=== PATIENT | female | born 1950 | race Caucasian/White ===

== ENCOUNTER 2019-11-19 21:30 | Inpatient (IN) | payer OTHER ==
--- NOTE | 2019-11-19 22:48 | EDPHYS ---
Physician Documentation [facility] Name: Kennedi Garcia Age: 69 yrs Sex: Female : 1950 Arrival Date: 11/19/2019 Time: 21:33 Bed 15 Private MD: ED Physician Juan Blanc HPI: 11/18 22:43 This 69 yrs old Female presents to ER via Ambulatory with complaints of sheela covid-19, Cough, Breathing Difficulty. 22:43 The patient or guardian reports cough, difficulty breathing, flu symptoms, arthralgias, sheela low-grade fever, myalgias. Onset: The symptoms/episode began/occurred 3 week(s) ago. Severity of symptoms: At their worst the symptoms were moderate, in the emergency department the symptoms are unchanged. Modifying factors: The symptoms are alleviated by nothing, the symptoms are aggravated by exertion. Associated signs and symptoms: Pertinent positives: chest pain, earache, nausea, rhinorrhea, sore throat, weak and sob increasing. The patient has experienced similar episodes in the past, several times. Historical: - Allergies: 23:24 No Known Allergies; mg2 - Home Meds: 11/19 05:29 Lipitor Oral [Active]; propanolol [Active]; xanax [Active]; Norvasc Oral [Active]; HCTZ mg2 [Active]; Lexapro Oral [Active]; - PMHx: 11/18 23:24 Hypertension; mg2 11/19 05:29 tremors; mg2 - PSHx: 11/18 23:24 sinus surgery; mg2 - Immunization history:: Flu vaccine is up to date. - Social history:: Smoking status: Patient denies any tobacco usage or history of. Patient/guardian denies using alcohol, street drugs, IV drugs. ROS: 22:44 Constitutional: Negative for fever, chills, and weight loss, Eyes: Negative for injury, sheela pain, redness, and discharge, ENT: Negative for injury, pain, and discharge, Neck: Negative for injury, pain, and swelling, Cardiovascular: Negative for chest pain, palpitations, and edema, Abdomen/GI: Negative for abdominal pain, nausea, vomiting, diarrhea, and constipation, Back: Negative for injury and pain, : Negative for injury, bleeding, discharge, and swelling, MS/Extremity: Negative for injury and deformity, Skin: Negative for injury, rash, and discoloration, Neuro: Negative for headache, weakness, numbness, tingling, and seizure, Psych: Negative for depression, anxiety, suicide ideation, homicidal ideation, and hallucinations, Allergy/Immunology: Negative for hives, rash, and allergies, Endocrine: Negative for neck swelling, polydipsia, polyuria, polyphagia, and marked weight changes, Hematologic/Lymphatic: Negative for swollen nodes, abnormal bleeding, and unusual bruising. 22:44 Respiratory: Positive for cough, shortness of breath, at rest. Exam: 22:44 Constitutional: This is a well developed, well nourished patient who is awake, alert, sheela and in no acute distress. Head/Face: Normocephalic, atraumatic. Eyes: Pupils equal round and reactive to light, extra-ocular motions intact. Lids and lashes normal. Conjunctiva and sclera are non-icteric and not injected. Cornea within normal limits. Periorbital areas with no swelling, redness, or edema. ENT: Nares patent. No nasal discharge, no septal abnormalities noted. Tympanic membranes are normal and external auditory canals are clear. Oropharynx with no redness, swelling, or masses, exudates, or evidence of obstruction, uvula midline. Mucous membranes moist. Neck: Trachea midline, no thyromegaly or masses palpated, and no cervical lymphadenopathy. Supple, full range of motion without nuchal rigidity, or vertebral point tenderness. No Meningismus. Chest/axilla: Normal chest wall appearance and motion. Nontender with no deformity. No lesions are appreciated. Cardiovascular: Regular rate and rhythm with a normal S1 and S2. No gallops, murmurs, or rubs. Normal PMI, no JVD. No pulse deficits. Abdomen/GI: Soft, non-tender, with normal bowel sounds. No distension or tympany. No guarding or rebound. No evidence of tenderness throughout. Back: No spinal tenderness. No costovertebral tenderness. Full range of motion. Female : Normal external genitalia. Skin: Warm, dry with normal turgor. Normal color with no rashes, no lesions, and no evidence of cellulitis. MS/ Extremity: Pulses equal, no cyanosis. Neurovascular intact. Full, normal range of motion. Neuro: Awake and alert, GCS 15, oriented to person, place, time, and situation. Cranial nerves II-XII grossly intact. Motor strength 5/5 in all extremities. Sensory grossly intact. Cerebellar exam normal. Normal gait. Psych: Awake, alert, with orientation to person, place and time. Behavior, mood, and affect are within normal limits. 22:44 Respiratory: the patient does not display signs of respiratory distress, Respirations: no acute changes, is not noted, labored breathing, is not present, asymmetrical chest movement, is not seen, Breath sounds: decreased breath sounds, that are mild, Respiratory rate: 20 22:44 Musculoskeletal/extremity: DVT Exam: No signs of deep vein thrombosis. no pain, no swelling, no tenderness, negative Homans' sign noted on exam, no appreciated bluish discoloration, no erythema, no increased warmth. Vital Signs: 22:15 BP 157 / 76; Pulse 69; Resp 20; Temp 98.6; Pulse Ox 85% on R/A; mg2 22:27 Pulse Ox 97% on 3 lpm NC; mg2 23:23 BP 141 / 63; Pulse 72; Resp 18; Temp 98.3; Pulse Ox 99% on 3 lpm NC; mg2 23:30 Weight 77.11 kg; mg2 07/02 01:21 BP 160 / 82; Pulse 67; Resp 18; Temp 98.3; Pulse Ox 100% on 4 lpm NC; mg2 02:10 BP 153 / 75; Pulse 67; Resp 20 S; Pulse Ox 95% on 4 lpm NC; jd3 MDM: 11/18 21:[address] [facility] 22:49 Differential Diagnosis: sepsis, Obstructed Airway Bronchitis Influenza Upper sheela Respiratory Infection Sinusitis Asthma Exacerbation Pneumonia Tracheal Injury. Data reviewed: vital signs, nurses notes, lab test result(s), EKG, radiologic studies, plain films. Data interpreted: surveillance system monitor: rate is 69 beats/min, rhythm is regular, Pulse oximetry: on 2L(s) per nasal canula, is 97 %. Test interpretation: by ED physician or midlevel provider: ECG, plain radiologic studies. Counseling: I had a detailed discussion with the patient and/or guardian regarding: the historical points, exam findings, and any diagnostic results supporting the discharge/admit diagnosis, lab results, radiology results, the need for further work-up and treatment in the hospital. ED course: plan discussed with patient , and dr shelby, admitting . 11/19 02:09 Physician consultation: Bob Jones MD was called at 08:00, was contacted at 08:00, [facility] regarding admission, to the telemetry unit. patient's condition, and will see patient in inpatient room, would like medications started, Lovenox, nothing else at this time. 11/18 22:26 Order name: Blood Culture [facility] ([facility] [place] 11/18 22:26 Order name: BMP; Complete Time: 23:24 mg2 11/18 22:26 Order name: CBC with Diff; Complete Time: 23:24 mg2 11/18 22:26 Order name: Ckmb; Complete Time: 23:24 mg2 11/18 22:26 Order name: CPK; Complete Time: 23:24 mg2 11/18 22:26 Order name: D-Dimer; Complete Time: 23:24 mg2 11/18 22:26 Order name: Hepatic Function; Complete Time: 23:24 mg2 11/18 22:26 Order name: Lipase; Complete Time: 23:24 mg2 11/18 22:26 Order name: Magnesium; Complete Time: 23:24 mg2 11/18 22:26 Order name: NT PRO-BNP; Complete Time: 23:24 mg2 11/18 22:26 Order name: PT-INR; Complete Time: 23:24 mg2 11/18 22:26 Order name: Ptt, Activated; Complete Time: 23:24 mg2 11/18 22:26 Order name: Troponin (emerg Dept Use Only); Complete Time: 23:24 mg2 11/19 00:37 Order name: C-Reactive Protein; Complete Time: 01:51 EDMS 11/18 22:42 Order name: Chest Single View XRAY [facility] 11/18 23:25 Order name: CT Chest For PE Angio [facility] 11/19 00:37 Order name: Ferritin; Complete Time: 01:51 EDMS 11/19 00:37 Order name: Comprehensive Metabolic Panel EDMS 11/19 00:37 Order name: Lactate EDMS 11/19 00:37 Order name: Lactic Dehydrogenase; Complete Time: 01:51 EDMS 11/19 00:37 Order name: Procalcitonin EDMS 11/19 00:37 Order name: CBC with Automated Diff EDMS 11/19 00:37 Order name: D-Dimer EDMS 11/19 00:37 Order name: Magnesium EDMS 11/19 00:37 Order name: NT PRO-BNP EDTX 11/19 00:37 Order name: Phosphorus EDTX 11/19 00:37 Order name: Troponin I EDTX 11/19 02:02 Order name: Urine Culture [facility] 11/19 12:37 Order name: Manual Differential EDTX 11/19 14:02 Order name: CT EDTX 11/18 22:26 Order name: EKG; Complete Time: 22:27 mg2 11/18 22:26 Order name: Cardiac monitoring; Complete Time: 22:26 mg2 11/18 22:26 Order name: EKG - Nurse/Tech; Complete Time: 22:26 mg2 11/18 22:26 Order name: IV Saline Lock; Complete Time: 22:26 mg2 11/18 22:26 Order name: Labs collected and sent; Complete Time: : mg2 11/18 22:26 Order name: O2 Per Protocol; Complete Time: 22:27 mg2 11/18 22:26 Order name: O2 Sat Monitoring; Complete Time: 22:27 mg2 11/19 00:35 Order name: Heart Healthy EDTX 11/19 01:42 Order name: Misc. Order: strict bedrest; Complete Time: 01:46 [facility] Administered Medications: 11/18 23:10 Drug: Zithromax 500 mg Route: IVPB; Infused Over: 1 hrs; Site: right antecubital; mg2 11/19 00:23 Follow up: Response: No adverse reaction; IV Status: Completed infusion; IV Intake: mg2 500ml 11/18 23:10 Drug: SOLU-Medrol 125 mg Route: IVP; Site: right antecubital; mg2 11/19 00:23 Follow up: Response: No adverse reaction mg2 11/18 23:11 Drug: Rocephin 1 grams Route: IV; Rate: per protocol; Site: right antecubital; mg2 11/19 00:23 Follow up: Response: No adverse reaction; IV Status: Completed infusion mg2 11/18 23:13 Drug: Albuterol HFA Inhaler 2 puffs Route: Inhalation; mg2 11/19 00:23 Follow up: Response: No adverse reaction mg2 11/18 23:59 Drug: NS 0.9% with KCl 20 mEq/L 1000 ml Route: IV; Rate: 125 ml/hr; Site: right mg2 antecubital; 11/19 01:46 Follow up: Response: No adverse reaction; IV Status: Infusion continued upon admission mg2 00:00 Drug: Lovenox 1 mg/kg Route: Sub-Q; Site: right lower abdomen; mg2 00:23 Follow up: Response: No adverse reaction mg2 00:00 Drug: Potassium Effervescent Tablet 50 mEq Route: PO; mg2 00:23 Follow up: Response: No adverse reaction mg2 00:00 Drug: NS 0.9% 500 ml Route: IV; Rate: bolus; Site: right antecubital; mg2 :46 Follow up: Response: No adverse reaction; IV Status: Completed infusion; IV Intake: mg2 500ml 01:50 Drug: Aspirin Chewable Tablet 324 mg Route: PO; mg2 02:11 Follow up: Response: No adverse reaction jd3 01:50 Drug: Pepcid 20 mg Route: IVP; Site: right antecubital; mg2 02:11 Follow up: Response: No adverse reaction jd3 Disposition: 11/19/19 22:48 Hospitalization ordered by Renata Shelby for Inpatient Admission. Preliminary diagnosis are Hypoxemia, Acute upper respiratory infection, unspecified, SARS-associated coronavirus as the cause of diseases classified elsewhere, Dyspnea, Pneumonia due to other specified bacteria - bilateral, Hypokalemia, Pulmonary edema - saddle, bilateral, Urinary tract infection, site not specified. - Bed requested for Intensive Care Unit. - Status is Inpatient Admission. sv - Condition is Fair. - Problem is new. - Symptoms have improved. Signatures: Dispatcher [employer] EDMS Teresa Herrera RN RN sv Anderson, Corey, MD MD cha Lasagna, Tonya RN RN tl1 Praful Covarrubias RN RN ja1 Jose Angel Suggs RN RN mg2 Yousif Mercado RN jd3 Corrections: (The following items were deleted from the chart) 11/18 22:48 22:48 Hospitalization Ordered by Renata Shelby MD for Inpatient Admission. Preliminary sheela diagnosis is Hypoxemia; Acute upper respiratory infection, unspecified; SARS-associated coronavirus as the cause of diseases classified elsewhere. Bed requested for Telemetry/MedSurg (Inpatient). Status is Inpatient Admission. Condition is Fair. Problem is new. Symptoms have improved. sheela 23:26 22:48 11/19/2019 22:48 Hospitalization Ordered by Renata Shelby MD for Inpatient sheela Admission. Preliminary diagnosis is Hypoxemia; Acute upper respiratory infection, unspecified; SARS-associated coronavirus as the cause of diseases classified elsewhere; Dyspnea. Bed requested for Telemetry/MedSurg (Inpatient). Status is Inpatient Admission. Condition is Fair. Problem is new. Symptoms have improved. [facility] 11/19 00:45 07 23:26 11/19/2019 22:48 Hospitalization Ordered by Renata Shelby MD for Inpatient tl1 Admission. Preliminary diagnosis is Hypoxemia; Acute upper respiratory infection, unspecified; SARS-associated coronavirus as the cause of diseases classified elsewhere; Dyspnea; Pneumonia due to other specified bacteria - bilateral; Hypokalemia. Bed requested for Telemetry/MedSurg (Inpatient). Status is Inpatient Admission. Condition is Fair. Problem is new. Symptoms have improved. [facility] 11/19 01:43 00:45 11/19/2019 22:48 Hospitalization Ordered by Renata Shelby MD for Inpatient sheela Admission. Preliminary diagnosis is Hypoxemia; Acute upper respiratory infection, unspecified; SARS-associated coronavirus as the cause of diseases classified elsewhere; Dyspnea; Pneumonia due to other specified bacteria - bilateral; Hypokalemia. Bed requested for [facility] ER HOLD. Status is Inpatient Admission. Condition is Fair. Problem is new. Symptoms have improved. tl1 01:51 01:43 11/19/2019 22:48 Hospitalization Ordered by Renata Shelby MD for Inpatient sheela Admission. Preliminary diagnosis is Hypoxemia; Acute upper respiratory infection, unspecified; SARS-associated coronavirus as the cause of diseases classified elsewhere; Dyspnea; Pneumonia due to other specified bacteria - bilateral; Hypokalemia; Pulmonary edema - saddle, bilateral. Bed requested for Intensive Care Unit. Status is Inpatient Admission. Condition is Fair. Problem is new. Symptoms have improved. [facility] 02:02 01:51 11/19/2019 22:48 Hospitalization Ordered by Renata Shelby MD for Inpatient sheela Admission. Preliminary diagnosis is Hypoxemia; Acute upper respiratory infection, unspecified; SARS-associated coronavirus as the cause of diseases classified elsewhere; Dyspnea; Pneumonia due to other specified bacteria - bilateral; Hypokalemia; Pulmonary edema - saddle, bilateral. Bed requested for Telemetry/MedSurg (Inpatient). Status is Inpatient Admission. Condition is Fair. Problem is new. Symptoms have improved. [facility] 02:31 02:02 11/19/2019 22:48 Hospitalization Ordered by Renata Shelby MD for Inpatient tl1 Admission. Preliminary diagnosis is Hypoxemia; Acute upper respiratory infection, unspecified; SARS-associated coronavirus as the cause of diseases classified elsewhere; Dyspnea; Pneumonia due to other specified bacteria - bilateral; Hypokalemia; Pulmonary edema - saddle, bilateral; Urinary tract infection, site not specified. Bed requested for Telemetry/MedSurg (Inpatient). Status is Inpatient Admission. Condition is Fair. Problem is new. Symptoms have improved. [facility] 13:36 02:31 11/19/2019 22:48 Hospitalization Ordered by Renata Shelby MD for Inpatient ja1 Admission. Preliminary diagnosis is Hypoxemia; Acute upper respiratory infection, unspecified; SARS-associated coronavirus as the cause of diseases classified elsewhere; Dyspnea; Pneumonia due to other specified bacteria - bilateral; Hypokalemia; Pulmonary edema - saddle, bilateral; Urinary tract infection, site not specified. Bed requested for [facility] ER HOLD. Status is Inpatient Admission. Condition is Fair. Problem is new. Symptoms have improved. tl1 14:37 13:36 11/19/2019 22:48 Hospitalization Ordered by Renata Shelby MD for Inpatient sv Admission. Preliminary diagnosis is Hypoxemia; Acute upper respiratory infection, unspecified; SARS-associated coronavirus as the cause of diseases classified elsewhere; Dyspnea; Pneumonia due to other specified bacteria - bilateral; Hypokalemia; Pulmonary edema - saddle, bilateral; Urinary tract infection, site not specified. Bed requested for Intensive Care Unit. Status is Inpatient Admission. Condition is Fair. Problem is new. Symptoms have improved. 1
--- NOTE | 2019-11-19 22:48 | ER ---
Nurse's Notes [facility] Name: Kennedi Garcia Age: 69 yrs Sex: Female : 1950 Arrival Date: 11/19/2019 Time: 21:33 Bed 15 Private MD: Diagnosis: Hypoxemia;Acute upper respiratory infection, unspecified;SARS-associated coronavirus as the cause of diseases classified elsewhere;Dyspnea;Pneumonia due to other specified bacteria-bilateral;Hypokalemia;Pulmonary edema-saddle, bilateral;Urinary tract infection, site not specified Presentation: 11/18 21:49 Chief complaint: Patient states: Cough, Shortness of breath for several days, reports sg having had been tested for COVID-19 at this time, pt states feels chills but unsure of how high fever has gotten. Coronavirus screen: Surgical mask placed on patient. Patient moved to private room, placed in contact and droplet isolation with eye protection until further assessment. Patient reports a cough. Patient reports shortness of breath or difficulty breathing. Ebola Screen: Patient negative for fever greater than or equal to 101.5 degrees Fahrenheit, and additional compatible Ebola Virus Disease symptoms Patient denies exposure to infectious person. Patient denies travel to an Ebola-affected area in the 21 days before illness onset. No symptoms or risks identified at this time. Initial Sepsis Screen: Does the patient meet any 2 criteria? No. Patient's initial sepsis screen is negative. Does the patient have a suspected source of infection? No. Patient's initial sepsis screen is negative. Risk Assessment: Do you want to hurt yourself or someone else? Patient reports no desire to harm self or others. Onset of symptoms was November 19, 2019. Care prior to arrival: None. 21:49 Method Of Arrival: Ambulatory sg 21:49 Acuity: VIKTORIA 3 sg Triage Assessment: 23:00 Respiratory: the patient has moderate shortness of breath. mg2 23:00 Respiratory: Onset: The symptoms/episode began/occurred yesterday. mg2 Historical: - Allergies: 23:24 No Known Allergies; mg2 - Home Meds: 11/19 05:29 Lipitor Oral [Active]; propanolol [Active]; xanax [Active]; Norvasc Oral [Active]; HCTZ mg2 [Active]; Lexapro Oral [Active]; - PMHx: 11/18 23:24 Hypertension; mg2 11/19 05:29 tremors; mg2 - PSHx: 11/18 23:24 sinus surgery; mg2 - Immunization history:: Flu vaccine is up to date. - Social history:: Smoking status: Patient denies any tobacco usage or history of. Patient/guardian denies using alcohol, street drugs, IV drugs. Screenin:29 Abuse screen: Denies threats or abuse. Denies injuries from another. Nutritional mg2 screening: No deficits noted. Tuberculosis screening: No symptoms or risk factors identified. Fall Risk IV access (20 points). Assessment: 22:27 General: Appears in no apparent distress. comfortable, Behavior is calm, cooperative. mg2 Pain: Denies pain. Neuro: Level of Consciousness is awake, alert, obeys commands, Oriented to person, place, time, situation. Cardiovascular: Capillary refill < 3 seconds Patient's skin is warm and dry. Rhythm is sinus rhythm. Respiratory: Reports shortness of breath at rest cough that is productive, since 2 days ago Airway is patent Respiratory effort is even, unlabored, Respiratory pattern is regular, symmetrical, diminished breath sounds bilateral. GI: No signs and/or symptoms were reported involving the gastrointestinal system. : No signs and/or symptoms were reported regarding the genitourinary system. EENT: No signs and/or symptoms were reported regarding the EENT system. Derm: Skin is intact, is healthy with good turgor, Skin is pink, warm \T\ dry. normal. Musculoskeletal: Circulation, motion, and sensation intact. Capillary refill < 3 seconds. 23:22 Reassessment: Patient appears in no apparent distress at this time. Patient and/or mg2 family updated on plan of care and expected duration. Pain level reassessed. Patient is alert, oriented x 3, equal unlabored respirations, skin warm/dry/pink. 11/19 00:22 Reassessment: patient sent to ct via stretcher. mg2 02:09 General: Appears in no apparent distress. comfortable, Behavior is calm, cooperative, jd3 appropriate for age. Pain: Denies pain. Neuro: Level of Consciousness is awake, alert, obeys commands, Oriented to person, place, time, situation. Cardiovascular: Capillary refill < 3 seconds Patient's skin is warm and dry. Rhythm is regular. Respiratory: Reports shortness of breath at rest cough that is persistent Airway is patent Respiratory effort is even, unlabored, Respiratory pattern is regular, symmetrical, Breath sounds are diminished bilaterally. GI: No signs and/or symptoms were reported involving the gastrointestinal system. : No signs and/or symptoms were reported regarding the genitourinary system. EENT: No signs and/or symptoms were reported regarding the EENT system. Derm: Skin is intact, Skin is dry, Skin is normal, Skin temperature is warm. Musculoskeletal: Circulation, motion, and sensation intact. Range of motion: intact in all extremities. 02:10 Reassessment: charting continued in [facility]. d3 Vital Signs: 11/18 22:15 BP 157 / 76; Pulse 69; Resp 20; Temp 98.6; Pulse Ox 85% on R/A; mg2 22:27 Pulse Ox 97% on 3 lpm NC; mg2 23:23 BP 141 / 63; Pulse 72; Resp 18; Temp 98.3; Pulse Ox 99% on 3 lpm NC; mg2 23:30 Weight 77.11 kg; mg2 11/19 01:21 BP 160 / 82; Pulse 67; Resp 18; Temp 98.3; Pulse Ox 100% on 4 lpm NC; mg2 02:10 BP 153 / 75; Pulse 67; Resp 20 S; Pulse Ox 95% on 4 lpm NC; jd3 ED Course: 11/18 21:33 Patient arrived in ED. es 21:49 Jose Angel Suggs, LUIS FERNANDO is Primary Nurse. mg2 21:49 Juan Blanc MD is Attending Physician. sheela 21:51 Triage completed. sg 21:51 Arm band placed on. EKG completed in triage. Results shown to MD. sg 22:27 No provider procedures requiring assistance completed. Inserted saline lock: 20 gauge mg2 in right antecubital area, using aseptic technique. Blood collected. 22:46 Renata Pritchard MD is Hospitalizing Provider. sheela 23:17 Chest Single View XRAY In Process Unspecified. EDMS 23:23 Patient has correct armband on for positive identification. air sampling and monitoring on. Pulse mg2 ox on. NIBP on. 11/19 02:04 Patient admitted, IV remains in place. mg2 13:40 Echocardiogram with Doppler done by semiconductor technician. tc Administered Medications: 11/18 23:10 Drug: Zithromax 500 mg Route: IVPB; Infused Over: 1 hrs; Site: right antecubital; mg2 11/19 00:23 Follow up: Response: No adverse reaction; IV Status: Completed infusion; IV Intake: mg2 500ml 11/18 23:10 Drug: SOLU-Medrol 125 mg Route: IVP; Site: right antecubital; mg2 11/19 00:23 Follow up: Response: No adverse reaction mg2 11/18 23:11 Drug: Rocephin 1 grams Route: IV; Rate: per protocol; Site: right antecubital; mg2 11/19 00:23 Follow up: Response: No adverse reaction; IV Status: Completed infusion mg2 11/18 23:13 Drug: Albuterol HFA Inhaler 2 puffs Route: Inhalation; mg2 11/19 00:23 Follow up: Response: No adverse reaction mg2 11/18 23:59 Drug: NS 0.9% with KCl 20 mEq/L 1000 ml Route: IV; Rate: 125 ml/hr; Site: right mg2 antecubital; 11/19 01:46 Follow up: Response: No adverse reaction; IV Status: Infusion continued upon admission mg2 00:00 Drug: Lovenox 1 mg/kg Route: Sub-Q; Site: right lower abdomen; mg2 00:23 Follow up: Response: No adverse reaction mg2 00:00 Drug: Potassium Effervescent Tablet 50 mEq Route: PO; mg2 00:23 Follow up: Response: No adverse reaction mg2 00:00 Drug: NS 0.9% 500 ml Route: IV; Rate: bolus; Site: right antecubital; mg2 01:46 Follow up: Response: No adverse reaction; IV Status: Completed infusion; IV Intake: mg2 500ml 01:50 Drug: Aspirin Chewable Tablet 324 mg Route: PO; mg2 02:11 Follow up: Response: No adverse reaction jd3 01:50 Drug: Pepcid 20 mg Route: IVP; Site: right antecubital; mg2 02:11 Follow up: Response: No adverse reaction jd3 Intake: 00:23 IV: 500ml; Total: 500ml. mg2 01:46 IV: 500ml; Total: 1000ml. mg2 Outcome: 11/18 22:48 Decision to Hospitalize by Provider. sheela 11/19 02:48 Admitted to ER Hold. Please see [facility] for further documentation. jd3 Condition: stable Instructed on the need for admit, Demonstrated understanding of instructions. 14:37 Patient left the ED. sv Signatures: Dispatcher [employer] EDTeresa Villa RN RN Alex San RN Juan Sarmiento MD MD cha Salyer, Edna es Callis, Tiffany, night auditor EKG Ttc Yousif Mercado RN RN jd3 Jose Angel Suggs, LUIS FERNANDO RN mg2 Corrections: (The following items were deleted from the chart) 00:26 07/ 22:27 Respiratory: Reports shortness of breath at rest cough that is productive, mg2 since 2 days ago Airway is patent Respiratory effort is even, unlabored, Respiratory pattern is regular, symmetrical, Breath sounds are clear bilaterally. in mediastinum, right upper lobe, left upper lobe, right middle lobe, left lower lobe, right lower lobe, left posterior upper lobe, right posterior upper lobe, left posterior lower lobe, right posterior middle lobe and right posterior lower lobe mg2
[2019-11-19 23:05] LABS: Absolute Lymphocytes (CBC) 1.3 K/uL (0.7-4.9); Basophils % 1.3 % (0-1.3); Hematocrit 31.6 % (36.0-45.0); Lymphocytes % 12.3 % (15.3-44.8); RBC Red Blood Cell Count 3.47 M/uL (3.86-4.86)
[2019-11-19] MEDS ORDERED: NA CHLORIDE 0.9% 250 ML ONE (23:06)
[2019-11-19] MEDS ORDERED: ALBUTEROL INHALER 60 PUFF/8 GM IH ONE (23:06)
[2019-11-19] MEDS ORDERED: CEFTRIAXONE/SWI 1gm 1 GM/10 ML SYR ONE (23:06)
[2019-11-19] MEDS ORDERED: METHYLPREDNISOLONE 125 MG INJ ONE (23:06)
[2019-11-19] MEDS ORDERED: AZITHROMYCIN 500 MG INJ IVPB ONE (23:07)
[2019-11-19 23:19] LABS: Protime INR 1.12
[2019-11-19 23:20] LABS: ALT/SGPT 30 U/L (12-78); AST/SGOT 22 U/L (15-37); Alkaline Phosphatase 48 U/L (45-117); BUN Blood Urea Nitrogen 7 mg/dL (7-18); Bicarbonate 23 mmol/L (21-32); Bilirubin Direct 0.1 mg/dL (0-0.2); Bilirubin Total 0.6 mg/dL (0.2-1.0); CKMB Creatine Kinase MB < 1.0 ng/mL (0.3-3.6); Creatine Phosphokinase 76 U/L (26-192); Glucose Level 110 mg/dL (74-106); Lipase 103 U/L (73-393); Magnesium 1.9 mg/dL (1.8-2.4); NT PRO-BNP 4354 pg/mL (<125); Potassium 3.1 mmol/L (3.5-5.1); Protein, Total 7.8 g/dL (6.4-8.2); Sodium Level 141 mmol/L (136-145); Troponin (Emerg Dept Use Only) 0.03 ng/mL (0.0-0.045)
[2019-11-19] MEDS ORDERED: NA CHLORIDE 0.9% 500 ML ONE (23:54)
[2019-11-19] MEDS ORDERED: NS KCL 20MEQ 1,000 ML IV ONE (23:54)
[2019-11-19] MEDS ORDERED: ENOXAPARIN 80 MG/0.8 ML SQ ONE (23:54)
[2019-11-19] MEDS ORDERED: POTASSIUM 25 MEQ EFFERV TAB ONE (23:54)
[2019-11-20] MEDS ORDERED: ACETAMINOPHEN 500 MG TAB PO PRN (00:19)
[2019-11-20] MEDS ORDERED: ONDANSETRON 4 MG/2 ML VIAL IV PRN (00:26)
[2019-11-20] MEDS ORDERED: ENOXAPARIN 100 MG/ML SYR SQ SCH (00:26)
[2019-11-20 01:50] LABS: C-Reactive Protein 24.5 mg/L (<3.00); Ferritin 241.6 ng/mL (8-388)
[2019-11-20] MEDS ORDERED: FAMOTIDINE 20 MG/2 ML VIAL IV ONE (01:58)
[2019-11-20] MEDS ORDERED: ASPIRIN 81 MG CHEWABLE TABLET ONE (01:58)
[2019-11-20 02:44] VITALS: BMI 31.1
[2019-11-20] MEDS ORDERED: CEFTRIAXONE 1 GM/NS 50 ML 1 GM/50 ML BAG IV SCH (03:00)
[2019-11-20] MEDS ORDERED: AZITHROMYCIN IV 500 MG in NA CHLORIDE 0.9% 250 ML IVPB SCH ×2 (03:30→21:00)
--- NOTE | 2019-11-20 07:54 | P.HP ---
Certification for Inpatient Patient admitted to: Inpatient With expected LOS: >2 Midnights Patient will require the following post-hospital care: None Practitioner: I am a practitioner with admitting privileges, knowledge of patient current condition, hospital course, and medical plan of care. Services: Services provided to patient in accordance with Admission requirements found in Title 42 Section 412.3 of the Code of Federal Regulations Patient History Date of Service: 11/20/19 Reason for admission: Dyspnea; saddle emboli; rule out cor pulmonale History of Present Illness: Patient is a 69-year-old female came to the hospital with shortness of breath. 2 weeks ago patient was found have COVID-19 pneumonia. Patient recovered and was doing better over the last couple weeks. However, yesterday her shortness of breath returned. She came into the emergency room for further evaluation. In the ER she had labs which revealed a significantly elevated D-dimer level. CT PE protocol was performed. Patient was diagnosed with a saddle emboli. Patient becomes short of breath just from moving in her bed. Patient becomes hypoxic on moving from her bed. I spoke to the radiologist and he did not see any right ventricular strain on the CT scan. Will monitor patient also get an echo in the morning to re-evaluate for RV strain. Emergency room spoke with Pulmonary and patient was given Lovenox. If patient becomes hemodynamically unstable then may benefit from tPA. Will admit patient to ICU for closer monitoring. Allergies No Known Allergies Allergy (Unverified 11/20/19 01:04) - Past Medical/Surgical History Has patient received pneumonia vaccine in the past: Yes Diabetic: No -: COVID-19 Past Surgical History: Patient denies surgical history - Family History Father Family History: Reviewed- Non-Contributory - Social History Smoking Status: Never smoker Alcohol use: Yes CD- Drugs: No Caffeine use: Yes Place of Residence: Home Review of Systems 10-point ROS is otherwise unremarkable Physical Examination - Vital Signs Temperature: 99 F Blood Pressure: 143/66 Pulse: 65 Respirations: 20 Pulse Ox (%): 97 - Physical Exam General: Alert, In no apparent distress, Oriented x3 HEENT: Atraumatic, PERRLA, Mucous membr. moist/pink, EOMI, Sclerae nonicteric Neck: Supple, 2+ carotid pulse no bruit, No LAD, Without JVD or thyroid abnormality Respiratory: Diminished, Expiratory wheezes Cardiovascular: Regular rate/rhythm, Normal S1 S2, No murmurs Gastrointestinal: Normal bowel sounds, Soft and benign, Non-distended, No tenderness Musculoskeletal: No tenderness Integumentary: No rashes Neurological: Normal gait, Normal speech, Normal strength at 5/5 x4 extr, Normal tone, Sensation intact, Cranial nerves 3-12 intact, Normal affect Lymphatics: No axilla or inguinal lymphadenopathy - Studies Laboratory Data (last 24 hrs) 11/19/19 22:15: PT 13.2 H, INR 1.12, APTT 38.9 H 11/19/19 22:15: WBC 10.7, Hgb 10.5 L, Hct 31.6 L, Plt Count 318 11/19/19 22:15: Sodium 141, Potassium 3.1 L, BUN 7, Creatinine 0.95, Glucose 110 H, Magnesium 1.9, Total Bilirubin 0.6, AST 22, ALT 30, Alkaline Phosphatase 48, Lipase 103 Assessment & Plan - Problems (Diagnosis) (1) Saddle embolism of pulmonary artery Current Visit: Yes Status: Acute (2) Pneumonia due to COVID-19 virus Current Visit: Yes Status: Acute - Plan Plan: 1. Continue anti coagulation 2. Pulmonary consultation 3. Echocardiogram 4. Inhaler and antibiotic therapy 5. O2 per protocol 6. GI and DVT prophylaxis Discharge Plan: Home Plan to discharge in: Greater than 2 days - Advance Directives Does patient have a Living Will: No Does patient have a Durable POA for Healthcare: No - Code Status/Comfort Care Code Status Assessed: Yes Code Status: Full Code Critical Care: Yes Time Spent Managing PTS Care (In Minutes): 45
[2019-11-20] MEDS ORDERED: ENOXAPARIN 80 MG/0.8 ML SQ SCH (09:00)
[2019-11-20] MEDS ORDERED: CEFTRIAXONE/SWI 1gm 1 GM/10 ML SYR IV SCH (09:00)
[2019-11-20] MEDS ORDERED: ENOXAPARIN 80 MG/0.8 ML SQ ONE (10:46)
[2019-11-20] MEDS ORDERED: CEFTRIAXONE/SWI 1gm 1 GM/10 ML SYR ONE (10:46)
[2019-11-20 11:15] LABS: Absolute Lymphocytes (CBC) 0.7 K/uL (0.7-4.9); Basophils % 0.4 % (0-1.3); Hematocrit 30.2 % (36.0-45.0); Lymphocytes % 7.6 % (15.3-44.8); MPV 8.5 fL (7.6-11.3); RBC Red Blood Cell Count 3.31 M/uL (3.86-4.86)
[2019-11-20 11:38] LABS: ALT/SGPT 27 U/L (12-78); AST/SGOT 24 U/L (15-37); Albumin 2.8 g/dL (3.4-5.0); Alkaline Phosphatase 46 U/L (45-117); BUN Blood Urea Nitrogen 8 mg/dL (7-18); Bicarbonate 25 mmol/L (21-32); Bilirubin Total 0.4 mg/dL (0.2-1.0); Glucose Level 163 mg/dL (74-106); Magnesium 1.8 mg/dL (1.8-2.4); NT PRO-BNP 4199 pg/mL (<125); Phosphorus 2.5 mg/dL (2.5-4.9); Potassium 4.2 mmol/L (3.5-5.1); Protein, Total 7.2 g/dL (6.4-8.2); Sodium Level 144 mmol/L (136-145); Troponin I < 0.02 ng/mL (0.0-0.045)
--- NOTE | 2019-11-20 12:08 | RAD REPORT ---
EXAM DESCRIPTION: RAD - Chest Single View - 11/19/2019 11:17 pm CLINICAL HISTORY: Fever;Dyspnea COMPARISON: None TECHNIQUE: AP portable chest image was obtained 11/19/2019 11:17 pm . FINDINGS: Lung volumes are relatively low. Scattered ground-glass opacification is present throughou t both lung [place] including interstitial opacification in the lung [place]. Findings are consistent w ith a COVID-19 pneumonia. Heart size accentuated by shallow inspiration. Vasculature within normal limits. No measurable pleur al effusion and no pneumothorax. No acute bony abnormality seen. No acute aortic findings suspected. IMPRESSION: 1. Bilateral ground-glass opacification throughout both lung [place]. 2. Pattern is consistent with COVID-19 pneumonia and correlation is needed with with testing results, clinical exam and other lab abnormalities.
[2019-11-20] MEDS: dexAMETHasone 4 MG/ML VIAL IV SCH ×2 (12:12→16:34)
--- NOTE | 2019-11-20 12:14 | P.CNS ---
Date of Consult: 11/20/19 Reason for Consult: Pulmonary embolism pandey virus pneumonia Chief Complaint: Shortness of breath and cough History of Present Illness: Patient is 69 years of age was diagnosed with pandey virus 3 weeks ago has been complaining of worsening dyspnea for the past week and chronic cough admitted with bilateral pulmonary embolism and bilateral pneumonia currently doing well in no distress feeling a little weak no fever Allergies No Known Allergies Allergy (Unverified 11/20/19 01:04) - Past Medical/Surgical History Diabetic: No -: COVID-19 - Family History Father Family History: Reviewed- Non-Contributory - Social History Alcohol use: Yes CD- Drugs: No Caffeine use: Yes Place of Residence: Home Review of Systems 10-point ROS is otherwise unremarkable Physical Examination Temp Pulse Resp BP Pulse Ox 96.1 F L 72 16 147/77 H 94 11/20/19 11:01 11/20/19 11:01 11/20/19 11:01 11/20/19 11:01 11/20/19 11:01 General: Other (Deferred patient is positive for Crohn or iris) Laboratory Data (last 24 hrs) 11/19/19 22:15: PT 13.2 H, INR 1.12, APTT 38.9 H 11/19/19 22:15: WBC 10.7, Hgb 10.5 L, Hct 31.6 L, Plt Count 318 11/19/19 22:15: Sodium 141, Potassium 3.1 L, BUN 7, Creatinine 0.95, Glucose 110 H, Magnesium 1.9, Total Bilirubin 0.6, AST 22, ALT 30, Alkaline Phosphatase 48, Lipase 103 - Problems (1) Pneumonia due to COVID-19 virus Current Visit: Yes Status: Acute Plan: Patient is 69 years of age admitted with pulmonary embolism she has ammonia from pandey virus bilateral interstitial changes/ Add decadron. change to Eliquis. . O2 satisfactory . Hemodynamically stable ambulate could be discharged home tomorrow on Eliquis 10 mg twice a day for 7 days and 5 mg twice a day or: Dose of Xarelto also add prednisone 10 mg twice a day for 7 days in addition to Advair
[2019-11-20 12:37] LABS: Blood Morphology Comment NOT SEEN (NOT SEEN); Platelet Estimate ADEQ
--- NOTE | 2019-11-20 14:01 | RAD REPORT ---
EXAM DESCRIPTION: CT - Chest For Pe Angio - 11/20/2019 12:47 am CLINICAL HISTORY: Hypoxia;Cough;Dyspnea COMPARISON: None Available TECHNIQUE: Multiple helical axial tomographic images were obtained of the chest following administra tion of intravenous contrast per angiographic protocol. MIP reformatted images were obtained. This exam was performed according to our departmental dose-optimization program, which includes autom ated exposure control, adjustment of the mA and/or kV according to patient size and/or use of iterati ve reconstruction technique. FINDINGS: Exam mildly limited by motion artifact. Thyroid gland: unremarkable. Axilla: unremarkable. Pulmonary arteries: There is a linear filling defect within and extending between the right and left pulmonary arteries compatible with saddle embolus. There is an additional embolus within the main pul monary artery extending into the left pulmonary artery. Emboli extend into the left upper and lower l obe lobar branches as well as a few segmental and subsegmental branches of the left upper lobes. Sadd le embolus extends into the right upper lobe lobar branch. There is a filling defect in the distal ri ght lower lobe lobar pulmonary artery extending into segmental and likely subsegmental branches. Aorta: No evidence of aortic dissection or aneurysm. Mediastinum: Unremarkable. No adenopathy. Heart: Heart appears moderately enlarged. No evidence of right heart strain. Lungs/airways: There are patchy groundglass opacities in both lungs with peripheral predominance. Rebel cific granuloma in the right upper lobe is present. Airways are patent. Pleural spaces: No significant pleural effusion. No pneumothorax. Osseous: Unremarkable. Soft tissues: Unremarkable. Visualized abdomen: Calcified splenic granulomas are present. IMPRESSION: 1. Multiple bilateral pulmonary emboli including saddle embolus as above. 2. Extensive patchy groundglass opacities in both lungs which can be seen with an infectious or infla mmatory process with underlying infarcts not excluded. Commonly reported imaging features of (COVID-1 9 or viral) pneumonia are present. Other processes such as influenza pneumonia and organizing pneum onia, as can be seen with drug toxicity and connective tissue disease, can cause a similar imaging pa ttern. PneTyp THIS REPORT CONTAINS FINDINGS THAT MAY BE CRITICAL TO PATIENT CARE: The findings were verbally discu ssed via telephone conference with Dr. Blanc by Dr. Saxena at 0111 hours central time on November 20, 2019 . The results were acknowledged and understood. Electronically signed by: Tab Saxena MD 11/20/2019 1:14 AM CDT Due to temporary technical issues with the PACS/Fluency reporting system, reports are being signed by the in house radiologist as a courtesy to ensure prompt reporting. The interpreting radiologist is f ully responsible for the content of the report.
[2019-11-20] MEDS: APIXABAN 5 MG TABLET PO SCH (20:03)
[2019-11-20] MEDS ORDERED: MAGNESIUM SULFATE 1 gm IVPB 1 GM/100 ML BAG IV ONE (21:00)
[2019-11-21] MEDS: dexAMETHasone 4 MG/ML VIAL IV SCH ×2 (00:09→07:59)
[2019-11-21 06:34] LABS: Magnesium 2.4 mg/dL (1.8-2.4); Potassium 4.2 mmol/L (3.5-5.1)
--- NOTE | 2019-11-21 06:46 | EKG ---
Test Date: 2019-11-19 Test Time: 22:21:38 Drying Oven Attendant: MEASUREMENT RESULTS: Intervals: Rate: 68 DC: 180 QRSD: 86 QT: 406 QTc: 431 [place]: P: 34 DC: 180 QRS: -8 T: 16 INTERPRETIVE STATEMENTS: Normal sinus rhythm Minimal voltage criteria for LVH, may be normal variant Possible Anterior infarct, age undetermined Abnormal ECG No previous ECG available for comparison Electronically Signed On 11-21-19 06:45:53 CDT by Jim Dsouza
[2019-11-21] MEDS: APIXABAN 5 MG TABLET PO SCH (07:58)
--- NOTE | 2019-11-21 08:04 | ECHO ---
HEIGHT: 5 ft 2 in WEIGHT: 170 lb 0 oz DATE OF STUDY: 11/20/[address]: Renata Pritchard MD 2-DIMENSIONAL: YES M.MODE: YES DOPPLER: YES COLOR FLOW: YES TDS: NO PORTABLE: YES DEFINITY: NO BUBBLE STUDY: NO DIAGNOSIS: SADDLE EMBOLI CARDIAC HISTORY: CATHERIZATION: NO SURGERY: NO PROSTHETIC VALVE: NO PACEMAKER: NO MEASUREMENTS (cm) DIASTOLIC (NORMALS) SYSTOLIC (NORMALS) IVSd 0.8 (0.6-1.2) LA Diam 3.4 (1.9-4.0) LVEF 61% LVIDd 3.9 (3.5-5.7) LVIDs 2.6 (2.0-3.5) %FS 32% LVPWd 1.1 (0.6-1.2) Ao Diam 2.4 (2.0-3.7) 2 DIMENSIONAL ASSESSMENT: RIGHT ATRIUM: ENLARGED LEFT ATRIUM: ENLARGED RIGHT VENTRICLE: NORMAL LEFT VENTRICLE: NORMAL TRICUSPID VALVE: MODERATE TRICUSPID REGURGITATION MITRAL VALVE: NORMAL PULMONIC VALVE: NORMAL AORTIC VALVE: NORMAL PERICARDIAL EFFUSION: NONE AORTIC ROOT: NORMAL LEFT VENTRICULAR WALL MOTION: DOPPLER/COLOR FLOW: GRADE I DIASTOLIC DYSFUNCTION. COMMENTS: NORMAL LEFT VENTRICULAR EJECTION FRACTION 42500% WITH NORMAL WALL MOTION. DIASTOLIC DYSFUNCTION IS PRESENT. SEVERE PULMONARY HYPERTENSION WITH RIGHT VENTRICULAR SYSTOLIC PRESSURE >60mmHg. MODERATE TRICUSPID REGURGITATION. MILD PULMONARY INSUFICIENCY. BI ATRIAL ENLARGEMENT. TECHNOLOGIST: JOJO CAVAZOS
--- NOTE | 2019-11-21 08:39 | P.PN ---
Subjective Date of Service: 11/21/19 Patient still gets short of breath on exertion. According to nursing staff room air oxygen dropped down into the 80s. Awaiting echocardiogram results. Review of Systems 10-point ROS is otherwise unremarkable Physical Examination - Vital Signs Temperature: 97.8 F Blood Pressure: 182/80 Pulse: 72 Respirations: 18 Pulse Ox (%): 92 - Physical Exam General: Alert, In no apparent distress, Oriented x3 Respiratory: Diminished, Expiratory wheezes Cardiovascular: Regular rate/rhythm, Normal S1 S2 Gastrointestinal: Normal bowel sounds, Soft and benign, Non-distended, No tenderness Musculoskeletal: No tenderness Integumentary: No rashes Neurological: Normal tone, Sensation intact, Cranial nerves 3-12 intact - Studies Medications List Reviewed: Yes Assessment & Plan - Problems (Diagnosis) (1) Saddle embolism of pulmonary artery Current Visit: Yes Status: Acute (2) Pneumonia due to COVID-19 virus Current Visit: Yes Status: Acute (3) Moderate to severe pulmonary hypertension Current Visit: Yes Status: Acute (4) Hypoxemia Current Visit: Yes Status: Acute - Plan Plan: 1. Continue anti coagulation 2. Pulmonary consultation appreciated 3. Echocardiogram pending 4. Inhaler and antibiotic therapy 5. O2 per protocol 6. Check room air O2 sats and arrange for home oxygen as needed 7. GI and DVT prophylaxis Discharge Plan: Home Plan to discharge in: Greater than 2 days - Advance Directives Does patient have a Living Will: No Does patient have a Durable POA for Healthcare: No - Code Status/Comfort Care Code Status: Full Code Critical Care: No Time Spent Managing PTS Care (In Minutes): 30
[2019-11-21] MEDS ORDERED: FUROSEMIDE 20 MG/ 2ML VIAL IV ONE (11:20)
--- NOTE | 2019-11-21 11:20 | P.PN ---
Subjective Date of Service: 11/21/19 Chief Complaint: Pulmonary embolism pandey virus pneumonia Subjective: Improving (Patient is doing well complaining of coughing no fever or chills) Review of Systems General: Weakness Respiratory: Cough, Shortness of Breath Physical Examination - Vital Signs Temperature: 97.8 F Blood Pressure: 182/80 Pulse: 72 Respirations: 18 Pulse Ox (%): 92 - Physical Exam General: Other (Deferred) - Studies Medications List Reviewed: Yes Assessment & Plan - Problems (Diagnosis) (1) Pneumonia due to COVID-19 virus Current Visit: Yes Status: Acute Plan: Patient Advair pneumoniae to carona virus recommend low-dose prednisone 10 mg twice a day for 7 days patient qualify for home O2 change to p.o. prednisone dose of IV Lasix maintain negative fluid balance (2) Pulmonary embolism Current Visit: Yes Status: Acute Plan: Patient is extensive pulmonary embolism pulmonary hypertension from diastolic dysfunction no evidence of right ventricular dilatation blood pressure is elevated Dc IV fluids patient will qualify for home O2 Qualifiers: Pulmonary embolism type: multiple subsegmental (without acute cor pulmonale) Qualified Code(s): I26.94 - Multiple subsegmental pulmonary emboli without acute cor pulmonale
[2019-11-21 12:47] VITALS: TEMP 98.2
[2019-11-21 15:02] VITALS: BP 186/75
[2019-11-21 15:22] VITALS: O2SAT 95
--- NOTE | 2019-11-21 16:47 | P.PN ---
Subjective Date of Service: 11/21/19 Chief Complaint: Pulmonary embolism pandey virus pneumonia Physical Examination - Vital Signs Temperature: 98.2 F Blood Pressure: 186/75 Pulse: 83 Respirations: 18 Pulse Ox (%): 93 - Studies Medications List Reviewed: Yes Assessment & Plan Physician Review Additional Text: Xarelto to expensive. Will change to Eliquis 10 mg 1 pill twice daily for 7 days then 5 mg 1 pill twice daily. Patient will follow up with pulmonology for further instructions and follow up. Coupon for Eliquis will be provided.
[2019-11-21] MEDS ORDERED: predniSONE 10 MG TAB PO SCH (21:00)
[2019-11-21] MEDS ORDERED: PROPRANOLOL HCL 40 MG TAB PO SCH (21:00)
[2019-11-22] MEDS ORDERED: AMLODIPINE 5 MG TAB PO SCH (09:00)
== END 2019-11-21 18:14 | disposition home or self-care (01) | DRG 175 ==
LOC: ER 21:30 → ERHOLD 11-20 00:37 → 3RD-ICU 11-20 14:09 → 4TH 11-20 17:09
PROVIDERS: ADMIT Hospitalist; ATTEND Hospitalist
DX: I26.94 Multiple subsegmental thrombotic pulmonary emboli without acute cor pulmonale (principal); U07.1 COVID-19; J12.89 Other viral pneumonia; I27.20 Pulmonary hypertension, unspecified; I10 Essential (primary) hypertension; R09.02 Hypoxemia; Z79.899 Other long term (current) drug therapy; Z79.01 Long term (current) use of anticoagulants
CPT/HCPCS: 36415; 71045; 71275; 80048; 80053; 80076; 82550; 82553; 82728; 83605; 83615; 83690; 83735; 83880; 84100; 84145; 84484; 85025; 85379; 85610; 85730; 86140; 87040; 87086; 87088; 93005; 93306; 94760; 96361; 96365; 96372; 96375; 99285; J0456; J0696; J1650; J1940; J2930; J3475; J7030; J7040; Q9967